=== PATIENT | male | born 1965 | race Caucasian/White ===

== ENCOUNTER 2023-06-22 18:17 | Emergency (ER) | payer MEDICARE, OTHER, SELFPAY ==
[2023-06-22 18:22] VITALS: BP 157/89
[2023-06-22 18:50] LABS: % Basophils 0.3 % (0-2); % Eosinophils 1.8 % (0-6); % Immature Granulocytes 0.3 % (0-0.5); % Lymphocytes 39.1 % (20.5-51.1); % Monocytes 4.4 % (1.7-9.3); % Neutrophils 54.1 % (42.2-75.2); Absolute Eosinophils 0.1 10^3/uL (0-0.7); Absolute Lymphocytes 2.4 10^3/uL (1.2-3.4); Absolute Monocytes 0.3 10^3/uL (0.1-0.6); Absolute Neutrophils 3.3 10^3/uL (1.4-6.5); Hematocrit 35.3 % (39.0-52.0); Hemoglobin 12.2 g/dL (13.0-18.0); Mean Corp Hgb Conc. 34.6 g/dL (33.0-37.0); Mean Corpuscular Hgb 29.9 pg (27.0-31.0); Mean Corpuscular Volume 86.5 fL (80.0-94.0); Mean Platelet Volume 9.9 fL (7.4-10.4); Nucleated Red Blood Cells % 0 % (-); Platelet Count 208 10^3/uL (130-400); Red Blood Cell Count 4.08 10^6/uL (4.70-6.10); Red Cell Dist. Width 13.5 % (11.5-14.5); White Blood Cell Count 6.1 10^3/uL (4.8-10.8)
[2023-06-22 19:04] LABS: ALT (SGPT) 23 U/L (0-50); AST (SGOT) 28 U/L (17-59); Albumin 4.4 g/dl (3.5-5.0); Alkaline Phosphatase 67 U/L (38-126); Blood Urea Nitrogen 12 mg/dl (9-20); Calcium 9.5 mg/dl (8.4-10.2); Carbon Dioxide 30 mmol/L (22-30); Chloride 97 mmol/L (98-107); Glucose 119 mg/dl (70-99); Potassium 3.8 mmol/L (3.5-5.1); Sodium 135 mmol/L (135-145); Total Bilirubin 0.6 mg/dl (0.2-1.3); Total Protein 7.2 g/dl (6.3-8.2); eGFR > 60.00
[2023-06-22 19:11] LABS: Troponin I < 0.012 ng/ml
--- NOTE | 2023-06-22 19:29 | ED.GENMED ---
History of Present Illness
General
Chief Complaint: Cough
Time Seen by Provider: 06/22/23 19:29
Travel History
Have you had any contact with someone who has COVID-19?: No
Do you have any symptoms of coronavirus? Fever > 100 degrees, chills, cough, shortness of breath, sore throat, loss of taste or smell, muscle aches, or headache?: No
History of Present Illness
History of Present Illness:
HPI: Patient presents due to hemoptysis. This started about an hour and a half ago. Is intermittent in nature and is described as somewhat severe at 1 point. He used to smoke up until 20 years ago but does not think that he was a pack-a-day
smoker. He had a headache earlier in the day which resolved after Tylenol. He has no other symptoms. He had a viral type of infection a couple of weeks ago which was not associate with cough
EXAM:
GENERAL: Well appearing in no distress
HEENT: Moist oral mucosa
CARDIOVASCULAR: No murmurs, normal heart rate, regular rhythm, No chest wall tenderness
PULMONARY: No respiratory distress, breath sounds are clear and equal
ABDOMEN: Soft with no peritoneal signs, no tenderness
NEUROLOGIC: Excellent strength all extremities, no coordination deficits
PSYCHIATRIC: Appropriate mental status, normal insight and judgement
EXTREMITIES: Nontender, no edema, moves all extremities equally
SKIN: Appears somewhat pale
TIME OF INITIAL ENCOUNTER: 7:35 PM
NUMBER AND COMPLEXITY OF PROBLEMS ADDRESSED AT THE ENCOUNTER
� Chronic conditions affecting care: Anxiety/depression
� Acute Exacerbation and/or Progression of Chronic Illness: This is an acute problem
� Differential Diagnosis includes: Bronchitis, lung mass, patient denies that this is hematemesis
AMOUNT AND/OR COMPLEXITY OF DATA TO BE REVIEWED AND ANALYZED
� I performed an independent evaluation of and my interpretation is:
EKG: Sinus 75, normal axis, nonspecific ST abnormality
CT:
X-rays: I personally reviewed chest x-ray and agree with radiologist interpretation that there is no acute abnormality
Laboratory Studies: White blood cell count is normal 6.1, heme 12.2, platelet count normal, chemistries unremarkable, less than 0.012
Other:
� Review of other/old records: The patient was seen here in 2021 with chest pain at that time had a chest x-ray that was negative
� Clinical information was obtained by an independent historian: Spoke to the at bedside
� Prescriptions/Medications Considered but not given:
� Further testing considered but not performed:
RISK OF COMPLICATIONS AND/OR MORBIDITY OR MORTALITY OF PATIENT MANAGEMENT
� Social determinants of health affecting care: Lives at home
� Discussion with other providers:
� Escalation of care including admission/observation vs risk of discharge considered: The patient's hemoglobin is 12.2 which is at baseline. The patient had a chest x-ray and he is a former smoker but has not smoked in 20 years.
He denies any other symptoms such as weight loss but does report having a headache that has since resolved earlier today. On reassessment at 9:30 PM, the patient has had no further episodes.
Past History
Past History
ED Past Medical History: Psychiatric (Depression)
ED Past Surgical History: Cholecystectomy
Social History
Tobacco: Non-smoker
Alcohol: None
Drug: None
Phy Exam
Physical Exam
Physical Exam:
See HPI
Course
Orders/Labs/Results
Orders:
Orders
06/22/23 18:26
Electrocardiogram (*1) Urgent
Reason for Study: Chest Pain
06/22/23 18:27
EKG- Treatment ONCE
06/22/23 18:31
CMP [Comprehensive Metabolic Panel] Urgent
Complete Blood Count/With Diff Urgent
Troponin I Urgent
06/22/23 19:36
CR Chest - 2 Views Urgent
Comment:
Reason For Exam: hemoptysis former smoker
Abnormal Lab Results
06/22/23
18:31
RBC 4.08 L 10^6/uL
(4.70-6.10)
Hgb 12.2 L g/dL
(13.0-18.0)
Hct 35.3 L %
(39.0-52.0)
Chloride 97 L mmol/L
(98-107)
Glucose 119 H mg/dl
(70-99)
06/22/23 18:31
06/22/23 18:31
Vital Signs
Initial and Last Documented VS:
Initial Vital Signs
Temp Pulse Resp BP Pulse Ox
98.7 F 85 18 157/89 99
06/22/23 18:22 06/22/23 18:22 06/22/23 18:22 06/22/23 18:22 06/22/23 18:22
Last Documented Vital Signs
Temp Pulse Resp BP Pulse Ox
98.7 F 85 18 157/89 99
06/22/23 18:22 06/22/23 18:22 06/22/23 18:22 06/22/23 18:22 06/22/23 18:22
*Critical Care Note
Total Time (30-74mins, 75-104mins- exclusive of procedures): Not Applicable
ED Attending Note
-
Portions of this chart may have been created with voice recognition software.� Occasional wrong word or��sound alike� substitutions may have occurred due to the inherent limitations of voice recognition software.
Discharge Plan
Departure
Prescriptions:
No Action
tamsulosin 0.4 MG capsule
0.4 mg PO DAILY
buspirone 10 MG tablet
10 mg PO DAILY
fluticasone propionate 1 SPRAY spray,suspension
1 spray intranasal DAILY
escitalopram oxalate 10 MG tablet
10 mg PO DAILY
bupropion HCl 150 MG tablet extended release 24 hr
450 mg PO DAILY
Referrals:
Terry Linda, DO [Family Provider] -
Discharge Date and Time
Print Language: HEBREW
== END 2023-06-22 22:11 | disposition home or self-care (01) ==
LOC: EMR 18:17
PROVIDERS: Emergency Medicine; EMERGENCY PHYSICIAN Emergency Medicine; FAMILY PHYSICIAN Family Medicine
DX: R04.2 Hemoptysis (principal); R05.9 Cough, unspecified; R51.9 Headache, unspecified; F32.A Depression, unspecified; Z87.891 Personal history of nicotine dependence
CPT/HCPCS: 99285; 71046; 80053; 84484; 85025; 93005

== ENCOUNTER → 2024-04-03 11:08 | Outpatient (REF) | payer MEDICARE, OTHER, SELFPAY | LOC: RAD 11:08 | PROVIDERS: ATTENDING PHYSICIAN Student in an Organized Health Care Education/Training Program | DX: M25.531 Pain in right wrist (principal) | CPT/HCPCS: 73110 ==